=== PATIENT | male | born 1955 | race Caucasian/White ===

== ENCOUNTER 2019-01-12 07:19 | Day surgery (SDC) | payer OTHER ==
[~2019-01-12] VITALS: Ht 167.6 cm; Wt 89.4 kg
[~2019-01-12 07:19] MED LIST: ATOR10TA65 PO; LISI-471 PO; METO-335 PO
[2019-01-12 08:34] VITALS: Ht 167.6 cm; Wt 89.4 kg
[2019-01-12] MEDS ORDERED: STOMACH MED (08:38)
[2019-01-12] MEDS ORDERED: ASPI-903 PO (08:38)
[2019-01-12] MEDS ORDERED: LIPITOR (08:38)
[2019-01-12] MEDS ORDERED: PROPOFOL 40 ML ONE (08:47)
[2019-01-12] MEDS ORDERED: LIDOCAINE 100 MG SYRINGE ONE (08:47)
[2019-01-12] MEDS ORDERED: hydrALAzine 20 MG INJ IV PRN (09:00)
[2019-01-12] MEDS ORDERED: LABETALOL HCL 20MG INJ IV PRN (09:00)
--- NOTE | 2019-01-12 09:00 | PREAC ---
Date/Time of Note Date/Time of Note DATE: 01/12/19 TIME: 08:59 Anesthesia Eval and Record Evaluation Time Pre-Procedure Interview DATE: 01/12/19 TIME: 08:59 Age 63 Sex male NPO: 8 hrs Preoperative diagnosis Postive occult blood Planned procedure colonoscopy Past Medical History Past Medical History: Includes Cardio: HTN, Dyslipidemia Endo: Diabetes GI: Obesity Surgery & Anesthesia Issues No known issue Meds Anticoagulation: No Beta Candida within 24 hr: No Reason Beta Candida not given: Pt. not on B-Candida Reported Medications [Stomach Med] No Conflict Check 01/12/19 Aspirin* (Aspirin* Chew) 81 Mg Tab.chew, 81 MG PO DAILY, TAB.CHEW 01/12/19 [Lipitor] No Conflict Check 01/12/19 Atorvastatin Calcium (Atorvastatin Calcium) 10 Mg Tablet, 10 MG PO QHS, #30 TAB 08/23/15 Lisinopril* (Lisinopril*) 20 Mg Tablet, 20 MG PO DAILY, #30 TAB 08/23/15 Metoprolol Succinate* (Toprol XL*) 25 Mg Tab.sr.24h, 25 MG PO DAILY, #30 TAB 08/23/15 Meds reviewed: Yes Allergies Coded Allergies: No Known Allergy (Unverified , 08/23/15) Allergies Reviewed: Yes Labs/Studies Labs Reviewed: Other (NA) test: N/A Pre-procedure Exam Airway: Adequate mouth opening Mallampati: Mallampati II Teeth: Abnormal Lung: Normal Heart: Normal ASA Physical Status ASA physical status: 3 Emergency: None Planned Anesthetic General/MAC: MAC Pre-operative Attestations Prior to commencing anesthesia and surgery, the patient was re-evaluated, there was verification of: *The patient's identity *The results of appropriate recent lab work and preoperative vital signs *The above evaluation not changing prior to induction *Anesthetic plan, risk benefits, alternative and complications discussed with patient/family; questions answered; patient/family understands, accepts and wishes to proceed. ALLISON PURCELL January 12, 2019 09:00
--- NOTE | 2019-01-12 09:27 | PAC ---
Date/Time of Note Date/Time of Note DATE: 01/12/19 TIME: 09:26 Post-Anesthesia Notes Post-Anesthesia Note Activity: WNL Respiratory function: WNL Cardiovascular function: WNL Mental status: Baseline Pain reasonably controlled: Yes Hydration appropriate: Yes Nausea/Vomiting absent: Yes Comments BP 125/76 spo2 100% HR 70 RR 16 temp 98.6F ALLISON PURCELL January 12, 2019 09:27
[2019-01-12 10:05] VITALS: BP 160/80; PULSE 62; RESP 18
== END 2019-01-12 15:21 | disposition home or self-care (01) ==
LOC: GIL 07:19
PROVIDERS: ATTEND Internal Medicine Gastroenterology
DX: K92.1 Melena (principal); D12.3 Benign neoplasm of transverse colon; K57.30 Diverticulosis of large intestine without perforation or abscess without bleeding; K64.8 Other hemorrhoids; I10 Essential (primary) hypertension; E11.9 Type 2 diabetes mellitus without complications; Z79.82 Long term (current) use of aspirin
CPT/HCPCS: 45380; 82962; 88305; J2001; Z7610